=== PATIENT | female | born 1965 | race Caucasian/White ===

== ENCOUNTER 2023-09-20 20:20 | Emergency (ER) | payer BC ==
[~2023-09-20] VITALS: Ht 170.2 cm; Wt 74.0 kg
[2023-09-20 20:33] VITALS: PULSE 101
[2023-09-20 20:50] VITALS: BP 131/81; RESP 16; TEMP 98.4; O2SAT 97
[2023-09-20] MEDS: TETANUS, DIPHTHERIA, PERTUSSIS VAC/PF 0.5ML (>10YR OLD) IM ONE (23:15)
[2023-09-20] MEDS: LIDOCAINE HCL/PF 1% 10 MG/ML 5ML VIAL INFIL ONE (23:15)
[2023-09-20] MEDS: BACITRACIN ZINC OINT UDPKT TOP ONE (23:15)
== END 2023-09-21 01:25 | disposition home or self-care (01) ==
LOC: ER 20:20
DX: S41.111A Laceration without foreign body of right upper arm, initial encounter (principal); E11.9 Type 2 diabetes mellitus without complications; E78.00 Pure hypercholesterolemia, unspecified; I10 Essential (primary) hypertension; W25.XXXA Contact with sharp glass, initial encounter; Y93.89 Activity, other specified; Y92.89 Other specified places as the place of occurrence of the external cause; Y99.8 Other external cause status
CPT/HCPCS: 12002; 90471; 99283; 90715; Z7610; 99282